=== PATIENT | male | born 1985 | race Caucasian/White ===

== ENCOUNTER 2023-08-06 08:10 | Emergency (ER) | payer OTHER, SELFPAY ==
[2023-08-06 08:22] VITALS: BP 124/86; PULSE 91; RESP 20; TEMP 36.4; O2SAT 95
--- NOTE | 2023-08-06 08:31 | ED.URI ---
HPI - URI/Sore Throat General Chief Complaint: Upper Respiratory Infection Stated Complaint: Congestion/ears Time Seen by Provider: 08/06/23 08:31 Source: patient, RN notes reviewed and old records reviewed Mode of arrival: ambulatory Limitations: no limitations History of Present Illness HPI Narrative: 37-year-old male presents to the [facility] with 3 weeks of cough, congestion reports subjective fever. Since states last several days his turn into sinus drainage. Called a telemedicine DrRenae and was prescribed QVAR, prednisone, Tessalon Perles and albuterol. Was told at that time that if symptoms do not improve ear he can start taking the Augmentin he had that he never took a couple of months ago. Has a history of seasonal allergies. States that he does take Zyrtec every day. Has been out of his steroid nasal spray Onset (ago): week(s) (3) Treatments prior to arrival: cold medicine and antibiotics Related Data Home Medications Medication Instructions Recorded Confirmed albuterol sulfate 90 mcg/actuation 2 puff inhalation Q4-6H PRN 08/06/23 08/06/23 aerosol inhaler Shortness Of Breath Or Wheezing beclomethasone dipropionate 40 2 inh inhalation DAILY 08/06/23 08/06/23 mcg/actuation HFA breath activated aerosol (Qvar RediHaler) Allergies Allergy/AdvReac Type Severity Reaction Status Date / Time No Known Allergies Allergy Verified 08/06/23 08:35 Review of Systems Review of Systems: All systems reviewed & are unremarkable except as noted in HPI and below Constitutional: Constitutional: Reports no additional constitutional complaints Eyes: Eyes: Reports no additional eye complaints ENT: Reports as per HPI Cardiovascular: Cardiovascular: Reports no additional cardiovascular complaints, Denies chest pain and Denies dyspnea Respiratory: Respiratory: Reports as per HPI, Reports chest congestion, Reports cough and Denies dyspnea Gastrointestinal: Gastrointestinal: Reports no additional gastrointestinal complaints, Denies abdominal pain, Denies nausea and Denies vomiting Musculoskeletal: Musculoskeletal: Reports no additional musculoskeletal complaints Integumentary/Breasts: Skin/Breast: Reports system reviewed and no additional complaints, except as docu Neurologic: Reports system reviewed and no additional complaints, except as documented Psychiatric: Psychiatric: Reports no additional psychiatric complaints Allergic/Immunologic: Allergic/Immunologic: Reports no additional allergic/immunologic complaints PMFSH Family History Family History Father Malignant neoplasm of prostate Family history of diabetes mellitus in first degree relative Social History Social History Alcohol intake: current Comments At the time of my signature, I reviewed and agree with the nursing past medical, surgical, social, and family history. There is no relevant family history pertinent to the patient complaint. Exam Const: General: cooperative, healthy appearing, comfortable, no acute distress, well developed, alert and well nourished Nutritional Appearance: well nourished and obese Orientation/consciousness: patient oriented x3 Limitations: no limitations HENMT: Head: normal to inspection Ears: hearing grossly normal bilaterally, external ears normal, EAC's normal and TM abnormal with fluid behind the TM bilateral; not erythematous Face/Nose/Sinus: Normal external nose present, Normal nares present, Normal nasal mucous membranes and turbinates present, normal facial exam and face symmetric Face and sinus: normal facial exam and face symmetric Mouth: Yes Normal oral and palatal mucosa present, Yes lip normal, Yes tongue normal and Yes moist mucous membranes Throat: posterior oropharynx normal, uvula midline and postnasal drainage Eyes: General: appearance normal, both eyes and all related structures Alignment and
== END 2023-08-06 08:50 | disposition home or self-care (01) ==
PROVIDERS: Emergency Provider Nurse Practitioner
DX: J40 Bronchitis, not specified as acute or chronic (principal); R09.82 Postnasal drip; Z79.899 Other long term (current) drug therapy
CPT/HCPCS: 99203; G0463

== ENCOUNTER 2023-12-28 15:48 | Emergency (ER) | payer OTHER, SELFPAY ==
[2023-12-28 15:52] VITALS: BP 153/95; PULSE 104; RESP 14; TEMP 36.1; O2SAT 96
--- NOTE | 2023-12-28 16:30 | ED.URI ---
HPI - URI/Sore Throat General Chief Complaint: Upper Respiratory Infection Stated Complaint: throat/ears Time Seen by Provider: 12/28/23 16:20 Source: patient, RN notes reviewed and old records reviewed Mode of arrival: ambulatory Limitations: no limitations History of Present Illness HPI Narrative: 38 year old male who presents to [facility] with complaints of 3 day history of sore throat,sinus congestion and drainage, and left ear pain with occasional cough. Pateint reports that kids were recently ill with strep throat and he had sinus issues about 2 weeks ago. Patient reports that he has taken some Zyrtec for his symptoms. Patient denies any fevers or any body aches.. MD elicited complaint: cough, sore throat and other (ear pain) Onset (ago): day(s) (3) Pain scale (0-10): 3 Able to tolerate fluids by mouth: Yes Treatments prior to arrival: other (zyrtec) Related Data Home Medications Medication Instructions Recorded Confirmed albuterol sulfate 90 mcg/actuation 2 puff inhalation Q4-6H PRN 08/06/23 08/06/23 aerosol inhaler Shortness Of Breath Or Wheezing Allergies Allergy/AdvReac Type Severity Reaction Status Date / Time No Known Allergies Allergy Verified 08/06/23 08:35 Review of Systems Review of Systems: CONSTITUTIONAL: Denies malaise, chills, sweats, or fever. EYES: Denies visual changes, redness, or discharge. ENT: Reports rhinorrhea, congestion, sinus pain, left otalgia and sore throat. CARDIOVASCULAR: Denies chest pain, palpitations, or edema. RESPIRATORY: Reports cough.? Denies dyspnea. GASTROINTESTINAL: Denies abdominal pain, nausea, vomiting, diarrhea SKIN: Denies rash or itching. MUSCULOSKELETAL: Denies myalgia. NEUROLOGIC: Denies headache. All systems reviewed & are unremarkable except as noted in HPI and below [facility] [place] Past Medical History Medical History (Updated 12/30/23 @ 19:32 by Jagruti Camp NP) Bronchitis Family History Family History Father Malignant neoplasm of prostate Family history of diabetes mellitus in first degree relative Social History Social History (Updated 12/30/23 @ 19:29 by Jagruti Camp NP) Smoking status: Never smoker Alcohol intake: current Substance use type: does not use Living arrangements: with family Gender identity (if verbalized by the patient): Male Comments At time of signature, agree with nursing past medical, surgical, social and family history. There is no relevant family history pertinent to the presenting complaint Exam Narrative: GENERAL: Well-appearing, well-nourished, and in no acute distress. HEAD: Normocephalic EYES: PERRLA, conjunctivae clear ENT: Nares clear, turbinates edematous and erythematous, clear discharge. Mucous membranes moist.Left TM red, Right TM pearly billingsley with dull light reflex; no tragal tenderness. Oropharynx erythematous without lesions. Tonsils not enlarged and without exudate, no drooling, no hoarseness, no trismus, uvula midline.post nasal discharge NECK: Supple. No lymphadenopathy CHEST: Clear to auscultation, breath sounds equal. No wheezing, rhonchi, rales, or stridor. No respiratory distress, speaks in full sentences.SAO2 96% on room air HEART: Regular rate and rhythm. No murmur heard. SKIN: Warm, dry, no rash. NEURO: Alert and oriented x3. PSYCH: Normal mood and affect Course Course Emergency Course: Patient is aware of diagnosis, understands and agrees to treatment plan.? Anticipatory guidance given.? Patient agrees to follow-up as directed and is aware of reasons to seek care at the emergency department. Portions of this record may have been created with voice recognition software Level of Care: Express Care Visit Vital Signs Vital signs: Vital Signs Temperature 36.1 C L 12/28/23 15:52 Pulse Rate 104 H 12/28/23 15:52 Respiratory Rate 14 12/28/23 15:52 Blood Pressure 153/95 H
== END 2023-12-28 16:48 | disposition home or self-care (01) ==
PROVIDERS: Emergency Provider Registered Nurse
DX: H66.92 Otitis media, unspecified, left ear (principal); J02.9 Acute pharyngitis, unspecified
CPT/HCPCS: 87081; 87880; 99213; G0463